=== PATIENT | male | born 1990 | race Caucasian/White ===

== ENCOUNTER 2018-10-29 19:28 | Emergency (ER) | payer OTHER ==
[~2018-10-29] VITALS: Ht 182.9 cm; Wt 72.6 kg
[~2018-10-29 19:28] MED LIST: CEPH500 PO; Cleocin HCl150 MG PO; Cleocin HCl300 MG PO; DIAZ5 PO; IBUP600 PO; Monodox100 MG PO; Motrin600 MG PO; Norco 5-325 Ta1 EACH PO; OXYACE5T PO; Percocet 5-3251 EACH PO; SULI150 PO; Ultram50 MG PO
[2018-10-29] MEDS ORDERED: Cipro500 MG PO (19:56)
== END 2018-10-29 20:08 | disposition home or self-care (01) ==
LOC: ER 19:28
DX: S91.332A Puncture wound without foreign body, left foot, initial encounter (principal); W22.8XXA Striking against or struck by other objects, initial encounter; Z87.891 Personal history of nicotine dependence
CPT/HCPCS: 90471; 90714; 99283-25

== ENCOUNTER 2019-04-17 16:26 | Emergency (ER) | payer OTHER ==
[~2019-04-17] VITALS: Ht 182.9 cm; Wt 74.8 kg
[~2019-04-17 16:26] MED LIST changes: +Cipro500 MG PO
[2019-04-17 17:50] LABS: Calcium, Ionized (POC) 1.11 mmol/L (1.10-1.46); Chloride (POC) 102 mmol/L (98-108); Creatinine (POC) 1.4 mg/dL (0.8-1.3); Glucose (ISTAT POC) 113 mg/dL (70-99); Hemoglobin (POC) 16.3 g/dL (13.5-17.5); Sodium (POC) 139 mmol/L (135-148); Total CO2 (POC) 26 mmol/L (21-32)
== END 2019-04-17 18:12 | disposition home or self-care (01) ==
LOC: ER 16:26
PROVIDERS: Physician Assistant
DX: R09.1 Pleurisy (principal); F41.9 Anxiety disorder, unspecified; Z87.891 Personal history of nicotine dependence
CPT/HCPCS: 36415; 71046; 80047; 85014; 85379; 93005; 93010

== ENCOUNTER 2020-05-18 05:07 | Emergency (ER) | payer OTHER ==
[~2020-05-18] VITALS: Ht 182.9 cm; Wt 68.0 kg
[~2020-05-18 05:07] MED LIST changes: +Bactrim Ds Tab1 EACH PO
[2020-05-18] MEDS ORDERED: ACETAMINOPHEN500 MG PO (06:54)
[2020-05-18] MEDS ORDERED: KEFLEX500 MG PO (06:54)
== END 2020-05-18 07:08 | disposition home or self-care (01) ==
LOC: ER 05:07
DX: S61.412A Laceration without foreign body of left hand, initial encounter (principal); F41.9 Anxiety disorder, unspecified; F17.210 Nicotine dependence, cigarettes, uncomplicated; W26.8XXA Contact with other sharp object(s), not elsewhere classified, initial encounter
CPT/HCPCS: 12002; 99282-25; A9270; A9270-GY

== ENCOUNTER 2020-06-09 06:41 | Emergency (ER) | payer OTHER ==
[~2020-06-09] VITALS: Ht 170.2 cm; Wt 70.3 kg
[~2020-06-09 06:41] MED LIST changes: +ACETAMINOPHEN500 MG PO; +KEFLEX500 MG PO
[2020-06-09] MEDS ORDERED: Bactrim Ds Tab1 EACH PO (07:20)
== END 2020-06-09 07:26 | disposition home or self-care (01) ==
LOC: ER 06:41
DX: L02.414 Cutaneous abscess of left upper limb (principal); Z48.02 Encounter for removal of sutures; F41.9 Anxiety disorder, unspecified; F17.210 Nicotine dependence, cigarettes, uncomplicated
CPT/HCPCS: 10160; 99283-25

== ENCOUNTER 2024-02-22 19:11 | Emergency (ER) | payer OTHER ==
[~2024-02-22] VITALS: Ht 182.9 cm; Wt 68.0 kg
[2024-02-22 19:19] VITALS: BP 150/100
[2024-02-22 19:39] LABS: BASOPHILS ABSOLUTE AUTO 0.09 K/mm3 (0.00-0.23); BASOPHILS PERCENT AUTO 1 % (0-2); EOSINOPHILS ABSOLUTE AUTO 0.14 K/mm3 (0.00-0.68); EOSINOPHILS PERCENT AUTO 1 % (0-6); Hematocrit 41.2 % (37.0-53.0); Hemoglobin 14.3 g/dL (13.5-17.5); IMMATURE GRAN ABSOLUTE AUTO 0.02 K/mm3 (0.00-0.10); IMMATURE GRAN PERCENT AUTO 0 % (0-1); LYMPHOCYTES PERCENT AUTO 19 % (21-46); MONOCYTES ABSOLUTE AUTO 0.85 K/mm3 (0.16-1.47); MONOCYTES PERCENT AUTO 8 % (4-13); Mean Corpuscular HGB 30.4 pg (26.0-34.0); Mean Corpuscular HGB Conc 34.7 g/dL (31.5-36.5); Mean Corpuscular Volume 88 fL (80-100); NEUTROPHILS ABSOLUTE AUTO 7.39 K/mm3 (1.96-9.15); NEUTROPHILS PERCENT AUTO 70 % (41-73); Platelet Count 386 K/mm3 (150-400); RDW Coefficient Variation 11.8 % (11.7-14.2); RDW Standard Deviation 38.1 fL (35.1-46.3); Red Blood Cell Count 4.71 M/mm3 (4.30-5.90); White Blood Cell Count 10.49 K/mm3 (4.00-11.30)
[2024-02-22 20:03] LABS: Albumin, Blood 3.7 g/dL (3.4-5.0); Albumin/Globulin Ratio 0.9 (0.8-1.8); Bilirubin, Total 0.2 mg/dL (0.1-1.0); Bun/Creatinine Ratio 15.4 (12.0-20.0); Calcium, Blood 9.1 mg/dL (8.5-10.1); Creatinine, Blood 1.17 mg/dL (0.60-1.20); Potassium, Blood 3.7 mmol/L (3.5-5.5); Total Protein, Blood 7.7 g/dL (6.4-8.2)
== END 2024-02-22 22:27 | disposition home or self-care (01) ==
LOC: ER 19:11
PROVIDERS: Student in an Organized Health Care Education/Training Program
DX: S80.02XA Contusion of left knee, initial encounter (principal); F17.210 Nicotine dependence, cigarettes, uncomplicated; X58.XXXA Exposure to other specified factors, initial encounter
CPT/HCPCS: 76882; 80053; 85025; 99283-25